=== PATIENT | female | born 1940 | race Caucasian/White ===

== ENCOUNTER 2024-08-23 17:19 | Emergency (ER) | payer MEDICARE, SELFPAY ==
[2024-08-23 17:25] VITALS: BP 171/74; PULSE 83; RESP 18; TEMP 36.9; O2SAT 97; BMI 32.6
--- NOTE | 2024-08-23 17:54 | ED.GENADULT ---
HPI - General Adult General Chief complaint: Laceration/Wound Stated complaint: Leg lac Time Seen by Provider: 08/23/24 17:21 Source: patient Mode of arrival: ambulatory Limitations: no limitations History of Present Illness HPI narrative: 83-year-old female coming in today concerned about a laceration on the anterior right gamboa. Patient walked into a building and hit her gamboa on a steel bench. Denies other injury. Is able to walk. States that her tetanus was updated last year. Related Data Home Medications ?Medication ?Instructions ?Recorded ?Confirmed abatacept (with maltose) IV 08/23/24 ascorbic acid (vitamin C) PO DAILY 08/23/24 aspirin 81 mg tablet 81 mg PO DAILY 08/23/24 08/23/24 fish oil-dha-epa PO DAILY 08/23/24 folic acid PO DAILY 08/23/24 hydroxychloroquine PO DAILY 08/23/24 mecobalamin (vitamin B12) PO DAILY 08/23/24 methotrexate 2 mg/mL oral solution 8 mg PO QWEEK 08/23/24 08/23/24 prednisone 5 mg tablet 5 mg PO DAILY 08/23/24 08/23/24 pregabalin 75 mg capsule (Lyrica) 75 mg PO DAILY 08/23/24 08/23/24 Previous Rx's ?Medication ?Instructions ?Recorded cephalexin 500 mg capsule 500 mg PO BID 7 days #14 caps 08/23/24 Allergies Allergy/AdvReac Type Severity Reaction Status Date / Time No Known Drug Allergies Allergy Verified 08/23/24 17:25 Review of Systems Status of ROS: Reports: 6 or more systems reviewed and unremarkable except as noted in History and below Exam Narrative: Exam Narrative: Well-nourished well-developed elderly patient in no acute distress. Alert and oriented x3. Answers questions appropriately. Mood and affect are appropriate. Thoughts are goal oriented and rational. No tangential or magical thinking noted. Patient speaks in full sentences without needing to catch her breath. HEENT: Normocephalic atraumatic. Extraocular muscles are intact. Conjunctivae are moist without any icterus noted. Moist mucous membranes. Extremities: Bilateral lower extremities have no edema. Patient has a large approximately 5 cm, bifurcated laceration on the anterior gamboa. The laceration extends through the dermis into the subcutaneous tissue. Const: Vital Signs, click to edit/add: Vital Signs - 24 hr 08/23/24 17:25 Temperature 98.4 F Pulse Rate [Pulse Oximeter] 83 Respiratory Rate 18 Blood Pressure [Ri ght Upper Arm] 171/74 H Pulse Oximetry 97 Oxygen Delivery Me thod Room Air Course Course ED Course: Wound was anesthetized with lidocaine with epinephrine. Wound was then cleaned and explored. No foreign objects visualized. Eleven sutures were placed with 3-0 Ethilon, including 4 horizontal mattress sutures. Patient tolerated the procedure well. Vital Signs Vital signs: Initial Vital Signs Temperature 98.4 F 08/23/24 17:25 Temperature Source Temporal Artery Scan 08/23/24 17:25 Pulse Rate 83 08/23/24 17:25 Respiratory Rate 18 08/23/24 17:25 Blood Pressure 171/74 H 08/23/24 17:25 Blood Pressure Mean 106 H 08/23/24 17:25 Blood Pressure Position Sitting 08/23/24 17:25 Pulse Oximetry 97 08/23/24 17:25 Oxygen Delivery Method Room Air 08/23/24 17:25 Vital Signs Temperature 98.4 F 08/23/24 17:25 Pulse Rate 83 08/23/24 17:25 Respiratory Rate 18 08/23/24 17:25 Blood Pressure 171/74 H 08/23/24 17:25 Pulse Oximetry 97 08/23/24 17:25 Oxygen Delivery Method Room Air 08/23/24 17:25 Temperature 98.4 F 08/23/24 17:25 Pulse Rate 83 08/23/24 17:25 Respiratory Rate 18 08/23/24 17:25 Blood Pressure 171/74 H 08/23/24 17:25 Pulse Oximetry 97 08/23/24 17:25 Oxygen Delivery Method Room Air 08/23/24 17:25 Medical Decision Making MDM Narrative Medical decision making narrative: 83-year-old female status post laceration to the anterior gamboa sutured per above. Discharge Plan Discharge Clinical Impression: Laceration Patient Disposition: Home, Self-Care Condition: Improved Additional Instructions: Keep wound clean and dry. Do not soak such as taking baths, swimming. Follow-up in approximately 10-14 days for suture removal with your primary care provider. Watch for signs and symptoms of infection including increasing redness of the area, purulent drainage, or fever. If this occurs follow-up right away with your doctor or return to the ER. This is very unlikely however since you will be placed on prophylactic antibiotic treatment because of the depth and size of the laceration. Change dressing once daily. Elevate your legs as much as possible to help with healing. Prescriptions: New cephalexin 500 mg capsule 500 mg PO BID 7 Days Qty: 14 0RF No Action hydroxychloroquine PO DAILY methotrexate 2 mg/mL solution 8 mg PO QWEEK pregabalin [Lyrica] 75 mg capsule 75 mg PO DAILY folic acid PO DAILY abatacept (with maltose) [Orencia (with maltose)] IV prednisone 5 mg tablet 5 mg PO DAILY aspirin 81 mg tablet 81 mg PO DAILY mecobalamin (vitamin B12) PO DAILY fish oil-dha-epa PO DAILY ascorbic acid (vitamin C) PO DAILY Stand Alone Forms: MyHealth Info Instructions
== END 2024-08-23 19:05 | disposition home or self-care (01) ==
LOC: ED 18:12
PROVIDERS: Emergency Provider Family Medicine
DX: S81.811A Laceration without foreign body, right lower leg, initial encounter (principal); W22.8XXA Striking against or struck by other objects, initial encounter
CPT/HCPCS: 12002; 99283; 99284